=== PATIENT | female | born 1995 | race Caucasian/White ===

== ENCOUNTER 2020-05-21 14:44 | Outpatient (CLI) | payer OTHER, SELFPAY ==
[2020-05-21 16:39] LABS: Albumin Level 4.1 g/dL (3.5-5.1)
[2020-05-21 16:52] LABS: Prealbumin 23.4 mg/dL (17.6-36.0)
[2020-05-21 18:15] LABS: Iron 105 ug/dL (37-170)
[2020-05-25 12:34] LABS: Vitamin B1 22 nmol/L (8-30)
== END 2020-05-21 14:45 | disposition home or self-care (01) ==
PROVIDERS: Visit Provider Surgery Plastic and Reconstructive Surgery
DX: L57.4 Cutis laxa senilis (principal)
CPT/HCPCS: 36415; 82040; 83540; 84134; 84425

== ENCOUNTER 2020-05-25 00:36 | Outpatient (CLI) | payer OTHER, SELFPAY ==
[2020-05-25 19:30] LABS: SARS-CoV-2 RNA PCR Negative
== END 2020-05-25 00:37 | disposition home or self-care (01) ==
LOC: ANHCOVIDDT 00:36
PROVIDERS: Visit Provider Surgery Plastic and Reconstructive Surgery
DX: Z01.812 Encounter for preprocedural laboratory examination (principal); Z20.828 Contact with and (suspected) exposure to other viral communicable diseases
CPT/HCPCS: 87635; C9803; U0003

== ENCOUNTER 2020-05-28 00:52 | Day surgery (SDC) | payer OTHER, SELFPAY ==
[2020-05-13 16:24] VITALS: BMI 22.8
[2020-05-21 18:00] VITALS: BP 93/56; PULSE 62; O2SAT 96
[2020-05-28] VITALS (15 sets, daily range): BP systolic 93–121; BP diastolic 56–81; PULSE 62–105; RESP 12–20; TEMP 36.9–37.3; O2SAT 94–100
[2020-05-28 07:28] LABS: Urine Cotinine NEGATIVE
[2020-05-28] MEDS: LACTATED RINGERS 1,000 ML 30 ML IV CONT ×2 (07:52→14:06)
--- NOTE | 2020-05-28 08:18 | WPDHPUPDATE1 ---
History and Physical Update Update Date/Time: 05/28/20 08:18 History and Physical has been reviewed, including an updated exam of the patient. There are NO changes in the patient's condition. Risks, benefits, and alternatives have been discussed and questions answered. Patient agrees to proceed with procedure.
--- NOTE | 2020-05-28 08:22 | WPDANESEPPF ---
Anes - Initial Pre Proc Eval Procedure: Operation Date: 05/28/20 09:00 Proposed Procedures p Bilateral Breast Augmentation - Maynor Rand MD s Bilateral Mastopexy - Maynor Rand MD s Abdominoplasty - Maynor Rand MD Date/Time: 05/28/20 08:22 Surgeon: Maynor Rand MD Pre Op Diagnosis: Micromastia, Skin Laxity Patient Data Age: 24 Gender: F Height: 5 ft 5 in Weight: 61 kg Last Vital Signs Temp 98.6 F 05/28/20 07:15 Pulse 85 05/28/20 07:15 Resp 16 05/28/20 07:15 BP 121/81 05/28/20 07:15 Pulse Ox 100 05/28/20 07:15 Allergies Allergy/AdvReac Type Severity Reaction Status Date / Time amoxicillin Allergy Severe RASH Verified 05/28/20 07:31 ANAPHYLAXIS azithromycin Allergy Severe RASH Verified 05/28/20 07:31 ANAPHYLAXIS cefdinir Allergy Severe RASH, Verified 05/28/20 07:31 ANAPHYLAXIS clavulanic acid Allergy Severe RASH Verified 05/28/20 07:31 ANAPHYLAXIS hydrocodone Allergy Severe RASH; Verified 05/28/20 07:31 ANAPHYLAXIS Penicillins Allergy Severe RASH Verified 05/28/20 07:31 ANAPHYLAXIS bacitracin Allergy Mild RASH Verified 05/28/20 07:31 neomycin Allergy Mild RASH Verified 05/28/20 07:31 polymyxin B Allergy Mild RASH Verified 05/28/20 07:31 clindamycin AdvReac Intermediate SECONDARY Verified 05/28/20 07:31 ( YEAST) INFECTION Home Medications Medication Instructions Recorded Confirmed Type bupropion HCl 150 mg tablet,12 hr 150 mg PO DAILY 04/29/20 05/13/20 History sustained-release fluticasone propion-salmeterol 1 inh INHALATION Q12H 05/13/20 05/28/20 History [Advair Diskus] docusate sodium 100 mg capsule 100 mg PO DAILY #14 cap 05/16/20 05/28/20 Rx ondansetron HCl 4 mg tablet 4 mg PO Q8H #28 tablet 05/17/20 05/28/20 Rx carisoprodol 350 mg tablet 350 mg PO TID PRN #21 tablet 05/20/20 05/28/20 Rx tramadol 50 mg tablet 50 mg PO Q6H PRN #15 tablet 05/20/20 05/28/20 Rx multivitamin 1 tablet PO DAILY 05/28/20 05/28/20 History Laboratory Tests 05/28/20 07:12 Cotinine Negative Patient hx anesthesia problems: post op nausea/vomiting Family hx anesthesia problems: none PMFSH Past Medical History Medical History (Updated 05/28/20 @ 08:22 by Martir Bach MD) Asthma Migraine Social History Social History Smoking status: Never smoker Alcohol intake: current Living arrangements: with family Gender identity (if verbalized by the patient): Female Spiritual care concerns: No Anes - Eval Final PreProcedure Day of Procedure 05/28/20 08:22 Patient weight: normal Heart: regular rate and rhythm Lungs: clear to auscultation Airway: Mallampati scale class II Neurological: alert and oriented Last oral intake: >/= 8 hours ASA classification: II Emergent: no Anesthetic plan: proceed Anesthesia type and monitoring: general ETT and standard monitoring Informed Consent: The patient's anesthetic plan and its attendant risks and benefits were discussed with the patient/family/POA. Questions were solicited and answers provided to the satisfaction of the patient/family/POA.
[2020-05-28] MEDS: SCOPOLAMINE 1.5 MG PATCH TRANSDERM (08:48)
[2020-05-28] MEDS: ONDANSETRON INJ 4 MG/2 ML VIAL IV PUSH ×2 (08:48→16:09)
[2020-05-28] MEDS: LIDO 1%/EPINEPHRINE 1:100,000 20 ML VIAL 30 ML INFILTRATE (08:56)
[2020-05-28] MEDS: CLINDAMYCIN 900 MG/NS 50 ML 900 MG/50 ML PIGGYBACK 50 MG IVPB (08:56)
--- NOTE | 2020-05-28 08:57 | PM.PROC ---
Procedure Note - Detailed Date of procedure: 05/28/20 Pre-op diagnosis: Micromastia, Skin Laxity Post-op diagnosis: same Procedure performed: 1. Augmentation Mastopexy 2. Abdominoplasty Description of procedure: She is here today for bilateral breast augmentation/mastopexy and abdominoplasty. She had a recent fall from horse and treating physician stated to the patient this is not worrisome and she may proceed with surgery. She states she feels well / healthy. No complaints whatsoever. She would like to proceed. Previously and again today the risks, benefits, alternatives were discussed in extensive detail. I wanted her to be very realistic about the risks involved as well as expectations. I was very upfront about the risks of wound breakdown leading to loss of skin, open wounds, and need for additional procedures with permanent abdominal deformity. We discussed DVT/PE risks and management. We discussed aftercare and what to monitor for. Made sure answered all of her questions to her satisfaction today and consent was obtained. Marked in the preoperative holding area with her verification. The patient was taken to the operating room placed supine on the operating table. Anesthesia was provided by anesthesiology. A surgical time-out was taken. We cleansed the skin and 1% lidocaine and 0.25% Marcaine with epinephrine was used anesthetize as a field block. She was prepped and draped in a standard sterile fashion. Tegaderm nipple Barrera were placed. A 15 blade used to make an incision vertically along planned vertical incision. Dissection was continued until the chest wall as identified. I incised the pectoralis major along its inferior border and completely released the inferior border leaving the medial border intact. I created a subpectoral pocket in the appropriate dimensions based on our preoperative planning for the implant. I then copiously irrigated with saline solution and verified a strict hemostasis. Next the use a triple antibiotic and Betadine containing solution to irrigate the pocket. I washed my gloves with the triple antibiotic and Betadine solution. We washed the implant immediately upon opening it with this solution and only opened it when we needed it. I used implant funnel and no-touch technique. The implant was introduced into the pocket using the funnel. Having verified positioning of the implant this was closed using 2-0 Vicryl. I tailor tacked the breast into place. Placed the patient in a sitting position and marked the NAC at 38mm based on preopertive marking, intraoperative measurements, and observations which were in full agreement. Placed supine. I de-epithelizied the superior pedicle and inset with 3-0 Biosyn. Vertical incision closed with 2-0 Vicryl as well as IMF followed by 3-0 Monocryl and running subcuticular 4-0 monocryl. Final closure was tissue glue. I placed the patient in a flexed position to verify the upper and lower markings would reach. I then placed her supine. A thorough abdominal examination was completed. Stab incisions were made and used tumescent solution. A 10 blade was used to make the upper incision. I continued dissection down to the level of fascia. Elevated just what was necessary for repair of the diastasis and discontinuous undermining otherwise. I then again flexed the bed to verify the upper skin flap would reach the lower markings without tension. Once verified I placed her supine once again and a 10 blade used to make the lower incision. I elevated up to level the umbilicus and left the umbilicus intact on a well-vascularized stalk. The intervening tissue was removed. A 2 mm blunt cannula and Exparel which was mixed 20 cc in 100 cc for a total volume of 120 cc I injected deep to the fascia bilaterally as well as along the incision lines. I plicated the diastasis recti using 0 PDO stratafix barbed suture. This was in 2 separate layers using 2 separate sutures as well. I
--- NOTE | 2020-05-28 13:33 | SUR.OPER ---
EBL:50cc, URINE: 200cc
[2020-05-28] MEDS: traMADol HCL 50 MG TABLET PO ×2 (16:09→22:17)
[2020-05-28] MEDS: LACTATED RINGERS 1,000 ML 125 ML IV CONT (16:10)
--- NOTE | 2020-05-28 17:33 | PC.NURSE ---
This patient, Arianne Maya, was received from PACU per hospital bed on 05/28/20 at 1525. Patient/family oriented to unit policies and routines
[2020-05-28] MEDS: carisoprodoL 350 MG TABLET PO (18:21)
[2020-05-28] MEDS: DOCUSATE SODIUM 100 MG CAPSULE PO (21:17)
[2020-05-29] MEDS: carisoprodoL 350 MG TABLET PO ×3 (00:27→11:26)
[2020-05-29 00:30] VITALS: BP 101/57; PULSE 74; RESP 18; TEMP 36.8; O2SAT 96
[2020-05-29] MEDS: traMADol HCL 50 MG TABLET PO ×2 (04:36→11:26)
[2020-05-29 04:45] VITALS: BP 101/64; PULSE 73; RESP 18; TEMP 37.2; O2SAT 96
[2020-05-29] MEDS: DOCUSATE SODIUM 100 MG CAPSULE PO (07:04)
[2020-05-29] MEDS: buPROPion HCL XL (24 HR) 150 MG TABCR PO (07:04)
[2020-05-29] MEDS: ENOXAPARIN 40 MG/0.4 ML SYRINGE SUB-Q (07:05)
--- NOTE | 2020-05-29 07:20 | WPDPN ---
Progress Note: A&P Assessment and Plan (1) Micromastia: Code(s): N64.82 - Hypoplasia of breast Status: Acute Assessment and Plan: She is doing very well after augmentation mastopexy and abdominoplasty. will increase her activity. Plan to discharge home later today when: Tolerating p.o. Ambulating Pain control Today we had a lengthy discussion about the postoperative care. What monitor for. We discussed what constitutes a medical emergency and want to proceed to the emergency room versus contact us. Will see her back in 1 week. Call with any questions or concerns in the meantime. (2) Breast ptosis: Code(s): N64.81 - Ptosis of breast Status: Acute (3) Skin laxity: Code(s): L57.4 - Cutis laxa senilis Status: Acute (4) History of cholecystectomy: Code(s): Z90.49 - Acquired absence of other specified parts of digestive tract Status: Acute (5) History of weight loss surgery: Code(s): Z98.84 - Bariatric surgery status Status: Acute (6) Hypoglycemia: Code(s): E16.2 - Hypoglycemia, unspecified Status: Acute Review of Systems Review of Systems: All systems reviewed & are unremarkable except as noted in HPI and below Exam Narrative: Exam Narrative: Breasts are healing well. No signs of infection. No hematoma. No seroma. Good color and capillary refill. Abdomen is healing well. No signs of infection. No hematoma. No seroma. No signs of infection. Good color and capillary refill. No calf tenderness. Negative Homans. Const: General: comfortable, no acute distress, alert and awake; No acute distress Orientation/consciousness: oriented to person HENMT: Head: normal to inspection Ears: external ears normal General nose exam: Normal external nose present Face and sinus: normal facial exam Eyes: General: appearance normal, both eyes and all related structures Periorbital: periorbital findings normal Eyelids: eyelids normal Conjunctivae: conjunctivae normal Neck: Neck: normal visual inspection Chest: Chest palpation & inspection: normal inspection of the chest Resp: Effort & Inspection: normal respiratory effort and able to speak in complete sentences GI: Inspection: normal to inspection Neuro: General: oriented to person Psych: Appearance: grossly normal Mental Status: mental status grossly normal Objective Data Vital Signs Vital Signs: Vital Signs - 24 hr 05/28/20 14:06 05/28/20 14:20 05/28/20 14:35 Temperature 37.2 C Pulse Rate 105 H 97 90 Respiratory Rate 12 12 12 Blood Pressure 117/66 117/65 112/68 Pulse Oximetry 94 95 94 05/28/20 14:50 05/28/20 15:05 05/28/20 15:16 Temperature 37.1 C Pulse Rate 88 81 82 Respiratory Rate 12 14 14 Blood Pressure 109/69 108/73 108/73 Pulse Oximetry 96 96 96 05/28/20 15:26 05/28/20 15:30 05/28/20 15:45 Temperature 37.3 C Pulse Rate 90 81 81 Respiratory Rate 18 20 18 Blood Pressure 108/70 118/70 108/70 Pulse Oximetry 99 97 95 05/28/20 16:00 05/28/20 16:30 05/28/20 17:00 Temperature 36.9 C Pulse Rate 76 75 71 Respiratory Rate 18 20 20 Blood Pressure 110/68 104/66 102/62 Pulse Oximetry 98 05/28/20 18:00 05/28/20 19:00 05/29/20 00:30 Temperature 37.2 C 36.8 C Pulse Rate 62 72 74 Respiratory Rate 18 Blood Pressure 93/56 L 98/58 L 101/57 L Pulse Oximetry 96 96 96 05/29/20 04:45 Temperature 37.2 C Pulse Rate 73 Respiratory Rate 18 Blood Pressure 101/64 Pulse Oximetry 96 Intake/Output Intake/Output: Intake & Output 05/26/20 05/27/20 05/28/20 05/29/20 23:59 23:59 23:59 23:59 Intake Total 450 1250 Output Total 170 1725 Balance 280 -475 Meds/Results Medications: Active Medications Generic Name Dose Route Start Last Admin Trade Name Freq PRN Reason Stop Dose Admin Bupropion HCl 150 mg 05/29/20 09:00 05/29/20 07:04 Wellbutrin Xl (24 Hr) PO 150 mg DAILY BREE Administration Carisoprodol 3
--- NOTE | 2020-05-29 07:23 | PM.DS ---
DS: Admitting Diagnosis Admitting Diagnosis Admitting Diagnosis: Micromastia, Skin Laxity DS: Discharge Diagnosis Discharge Diagnosis (1) Micromastia: Code(s): N64.82 - Hypoplasia of breast Status: Acute Assessment and Plan: Will discharge home. Follow up in 1 week. We discussed her DVT prophylaxis and she is going to use Lovenox in the hospital and when she is home she will regularly ambulate. We discussed what monitor for and what constitutes a medical emergency. Went to proceed to the emergency room / dial 911. She understands she can call with any questions or concerns. This was a lengthy open-ended conversation making sure answered all of her questions today. I will see her back in clinic. (2) Breast ptosis: Code(s): N64.81 - Ptosis of breast Status: Acute (3) Skin laxity: Code(s): L57.4 - Cutis laxa senilis Status: Acute (4) History of weight loss surgery: Code(s): Z98.84 - Bariatric surgery status Status: Acute (5) History of cholecystectomy: Code(s): Z90.49 - Acquired absence of other specified parts of digestive tract Status: Acute (6) Hypoglycemia: Code(s): E16.2 - Hypoglycemia, unspecified Status: Acute DS: Summary Time Spent with Patient Time attestation: Total time spent providing and/or coordinating discharge services: 20 minutes Exam Narrative: Exam Narrative: Breasts are healing well. No signs of infection. No hematoma. No seroma. Good color and capillary refill. Abdomen is healing well. No signs of infection. No hematoma. No seroma. No signs of infection. Good color and capillary refill. No calf tenderness. Negative Homans. Const: General: comfortable, no acute distress, alert and awake; No acute distress Orientation/consciousness: oriented to person HENMT: Head: normal to inspection Ears: external ears normal General nose exam: Normal external nose present Face and sinus: normal facial exam Eyes: General: appearance normal, both eyes and all related structures Periorbital: periorbital findings normal Eyelids: eyelids normal Conjunctivae: conjunctivae normal Neck: Neck: normal visual inspection Chest: Chest palpation & inspection: normal inspection of the chest Resp: Effort & Inspection: normal respiratory effort and able to speak in complete sentences GI: Inspection: normal to inspection Neuro: General: oriented to person Psych: Appearance: grossly normal Mental Status: mental status grossly normal DS: Data Data Completed and Pending Labs on day of discharge: Labs from last 24 hours 05/28/20 07:12 Cotinine Negative Discharge Plan Discharge Patient Disposition: Home, Self-Care Discharge Instructions: POST OPERATIVE DISCHARGE INSTRUCTIONS FOR: Breast Augmentation / Mastopexy / Abdominoplasty EHSAN SIMON M.D. [facility] [address] [place] [address] [address] for 24 hours after anesthesia and while you are taking pain medication. Take all prescribed medication as directed Diet as tolerated. Begin gentle shoulder rolls and arm stretches 10 times per hour. No lifting or activity that raises blood pressure for 48 hours. Regular walking / ambulation. No showering until directed to. No pools or tubs for 2 weeks. Call with any questions or concerns. No straining or lifting more than 20 pounds for 6 weeks. Slowly stand up straight as tolerated. You may shower. Do not take pain medication before showering as the combination of medication and heat may cause you to feel dizzy or pass out. Let soap and water run over your incisions. Do not scrub or directly wash your incision. Replace the surgical bra and wear it 23 hours per day. If you have any questions or concerns, please call the office . If it is after hours you will be directed to the [facility] [employer] [facility] exchange. Short
[2020-05-29 07:30] VITALS: BP 96/58; BP 98/58; PULSE 73; RESP 18; TEMP 36.8
--- NOTE | 2020-05-29 10:56 | WPDANLDPN2 ---
Anes-Prog Note L&D Date/Time: 05/29/20 10:56 Comfortable throughout: section Neuro status: Neuro function grossly intact. Cardiovascular status: normal Respiratory status: normal Airway patency: baseline Mental status: baseline Post-Op hydration status: normal Vital Signs: Last Vital Signs Temp 36.8 C 05/29/20 07:30 Pulse 73 05/29/20 07:30 Resp 18 05/29/20 07:30 BP 98/58 L 05/29/20 07:30 Pulse Ox 96 05/29/20 04:45 I/O: Intake & Output 05/28/20 05/29/20 05/29/20 23:59 07:59 15:59 Intake Total 100 1400 Output Total 120 1925 Balance -20 -525 Post-procedural complaints: none Patient feedback: Patient satisfied with anesthetic care.
== END 2020-05-29 13:54 | disposition home or self-care (01) ==
LOC: ANHSURGERY 09:07 → ANHOB2 14:57
PROVIDERS: Visit Provider Surgery Plastic and Reconstructive Surgery
PROC: (CPT 19316; principal; 2020-05-28 09:00)
PROC: (CPT 19316; 2020-05-28 09:00)
PROC: (CPT 19316; 2020-05-28 09:00)
DX: N64.82 Hypoplasia of breast (principal); L57.4 Cutis laxa senilis; N64.81 Ptosis of breast; Z90.49 Acquired absence of other specified parts of digestive tract; Z98.84 Bariatric surgery status; J45.909 Unspecified asthma, uncomplicated
CPT/HCPCS: 19316; 19340; 15847; 15830; 80307; 99199; A9270; C9290; J0171; J1100; J1170; J1580; J1650; J2250; J2370; J2405; J2704; J3010; J7120